=== PATIENT | female | born 1960 | race Caucasian/White ===

== ENCOUNTER 2021-01-22 09:15 | Day surgery (SDC) | payer BC ==
[~2021-01-22] VITALS: Ht 167.6 cm; Wt 104.5 kg
[2021-01-22] MEDS ORDERED: fentaNYL/PF 50MCG/1 ML 2ML syringe ONE (09:17)
[2021-01-22] MEDS ORDERED: MIDAZolam 1 MG/ML 5ML VIAL ONE (09:18)
[2021-01-22 09:20] VITALS: BP 141/77
[2021-01-22] MEDS ORDERED: ATOR40TA71 PO (09:26)
[2021-01-22] MEDS ORDERED: CYCL1DRO EACHEYE (09:26)
[2021-01-22] MEDS ORDERED: LOSA25TA96 PO (09:26)
[2021-01-22 10:18] VITALS: BP 123/78
[2021-01-22 10:28] VITALS: BP 114/73
[2021-01-22 10:38] VITALS: BP 119/72
[2021-01-22 10:48] VITALS: BP 113/78
== END 2021-01-22 11:05 | disposition home or self-care (01) ==
LOC: GI LAB 09:15
PROVIDERS: ATTEND Internal Medicine Gastroenterology
DX: Z12.11 Encounter for screening for malignant neoplasm of colon (principal); K63.5 Polyp of colon; K57.30 Diverticulosis of large intestine without perforation or abscess without bleeding; I10 Essential (primary) hypertension; Z79.899 Other long term (current) drug therapy
CPT/HCPCS: 45380; 99152; J2250; J3010; J7040; Z7512; 99153; A4620

== ENCOUNTER 2021-05-09 15:48 | Emergency (ER) | payer BC ==
[~2021-05-09] VITALS: Ht 167.6 cm; Wt 106.8 kg
[~2021-05-09 15:48] MED LIST: ATOR40TA71 PO; CYCL1DRO EACHEYE; LOSA25TA96 PO
[2021-05-09 16:24] VITALS: BP 142/94
== END 2021-05-09 17:50 | disposition home or self-care (01) ==
LOC: ER 15:49
DX: U07.1 COVID-19 (principal)
CPT/HCPCS: 99281